=== PATIENT | male | born 1970 | race Hispanic/Latino ===

== ENCOUNTER 2021-09-30 09:13 | Inpatient (IN) | payer OTHER ==
[~2021-09-30] VITALS: Ht 160 cm; Wt 89.9 kg
[2021-09-30 10:02] LABS: BASOPHILS % (AUTO) 0.7 % (0.0-5.0); HEMATOCRIT 33.9 % (42-54); LYMPHOCYTES % (AUTO) 6.3 % (21.0-51.0); MEAN CORPUSCULAR HEMOGLOBIN 28.8 pg (27.0-33.0); MEAN CORPUSCULAR HGB CONC 34.2 g/dL (32.0-36.0); MEAN CORPUSCULAR VOLUME 84.1 fL (79-99); MONOCYTES % (AUTO) 8.1 % (3.0-13.0); NEUTROPHILS % (AUTO) 83.4 % (40.0-77.0); PLATELET COUNT (AUTO) 160 K/uL (130-400); RED BLOOD CELL COUNT(AUTO) 4.03 MIL/uL (4.50-6.20); RED CELL DISTRIBUTION WIDTH 14.6 % (11.0-15.5); WHITE BLOOD COUNT (AUTO) 21.7 K/uL (4.8-10.8)
[2021-09-30 10:12] LABS: CARBON DIOXIDE 21 mmol/L (21-32); CHLORIDE 94 mmol/L (101-111); CREATININE 2.3 mg/dL (0.5-1.5); GLOMERULAR FILTR. RATE CALC 32 mL/min (>60); GLUCOSE,RANDOM 133 mg/dL (70-105); INR 1.48 (0.85-1.15); POTASSIUM 3.9 mmol/L (3.5-5.1); PROTHROMBIN TIME 15.6 SEC (9.6-11.6); SODIUM SERUM 130 mmol/L (136-145); UREA NITROGEN, BLOOD 74 mg/dL (7-18)
[2021-09-30 10:24] LABS: ALANINE AMINOTRANSFERASE 37 U/L (12-78); ALCOHOL, BLOOD < 3 mg/dL (0-10); ASPARTATE AMINOTRANSFERASE 42 U/L (10-37); BILIRUBIN,TOTAL 2.5 mg/dL (0.2-1.0); LIPASE 62 U/L (114-286); THYROID STIMULATING HORMONE 0.82 uIU/mL (0.36-3.74); TOTAL PROTEIN, SERUM 7.8 g/dL (6.0-8.3)
[2021-09-30 10:27] LABS: B-TYPE NATRIURETIC PEPTIDE 228 pg/mL (0-100)
[2021-09-30] MEDS ORDERED: 0.9%NACL 50ML 50 ML IV ONE (10:27)
[2021-09-30] MEDS ORDERED: ZOSYN 3.375GM +NS 50ML IV ONE (10:30)
[2021-09-30 10:34] LABS: APPEARANCE,URINE Cloudy (CLEAR); BILIRUBIN,URINE Small (NEGATIVE); COLOR,URINE Dark Yellow (YELLOW); GLUCOSE, URINE (UA) Negative (NEGATIVE); KETONES,URINE Negative (NEGATIVE); LEUKOCYTE ESTERASE ,URINE Trace (NEGATIVE); NITRATE,URINE Negative (NEGATIVE); OCCULT BLOOD,URINE Negative (NEGATIVE); PROTEIN,URINE POS 1+ mg/dL (NEGATIVE)
[2021-09-30 10:41] LABS: AMORPHOUS SEDIMENT,UR Few /LPF (None Seen); BACTERIA,URINE None Seen /HPF (None Seen); MUCUS,URINE Rare LPF (None Seen); RBC,URINE None Seen /HPF (0-1); WBC,URINE 0-1 /HPF (0-1)
[2021-09-30 10:42] LABS: AMPHET/METH SCREEN,URINE NEGATIVE (NEGATIVE); BARBITURATE SCREEN, URINE NEGATIVE (NEGATIVE); BENZODIAZEPINES SCREEN,URINE NEGATIVE (NEGATIVE); CANNABINOID SCREEN,URINE POSITIVE (NEGATIVE); COCAINE SCREEN,URINE POSITIVE (NEGATIVE); OPIATE SCREEN,URINE NEGATIVE (NEGATIVE); PHENCYCLIDINE SCREEN,URINE NEGATIVE (NEGATIVE); SQUAMOUS EPITHELIAL CELL,UR Few /HPF (0-2)
[2021-09-30] MEDS ORDERED: LACTULOSE 20 GM/30 ML UDCUP PO PRN (11:30)
[2021-09-30] MEDS ORDERED: LABETALOL 20MG SYG IV PRN (11:30)
[2021-09-30] MEDS ORDERED: ACETAMINOPHEN 650 MG SUPPOSITORY RC PRN (11:30)
[2021-09-30] MEDS ORDERED: HYDRALAZINE 20MG/ML VIAL IV PRN (11:30)
[2021-09-30] MEDS ORDERED: TEMAZEPAM 15 MG CAPSULE PO PRN (11:30)
[2021-09-30] MEDS ORDERED: ONDANSETRON 4MG INJ IVP PRN (11:30)
[2021-09-30] MEDS: ZOSYN 3.375GM +NS 50ML IV SCH ×2 (12:18→22:08)
[2021-09-30] MEDS: ACETAMINOPHEN 325 MG TAB PO PRN (12:18)
[2021-09-30] MEDS ORDERED: HYDROCODONE/ACETAMINOPHEN 5/325 MG TAB PO ONE (12:30)
[2021-09-30 14:38] VITALS: BP 112/80
[2021-09-30] MEDS ORDERED: PRED10TA3 PO (14:51)
[2021-09-30] MEDS ORDERED: NAPR500T6 PO (14:51)
[2021-09-30] MEDS ORDERED: DIAZEPAM 5 MG TABLET PO PRN (16:30)
[2021-09-30] MEDS ORDERED: HYDROMORPHONE 0.5 MG SYG (0.5MG/0.5ML) IVP PRN (16:30)
[2021-09-30] MEDS: 0.9% NACL 250ML IVPB SCH (16:37)
[2021-09-30] MEDS: DOXYCYCLINE 100MG+NS 250ML IV SCH (16:37)
[2021-09-30 19:00] VITALS: BP 112/58
[2021-10-01] VITALS (8 sets, daily range): BP systolic 106–127; BP diastolic 55–73
[2021-10-01] MEDS: 0.9% NACL 250ML IVPB SCH ×2 (04:00→17:17)
[2021-10-01 04:30] LABS: BASOPHILS % (AUTO) 0.9 % (0.0-5.0); EOSINOPHILS % (AUTO) 0.8 % (0.0-8.0); HEMATOCRIT 31.7 % (42-54); LYMPHOCYTES % (AUTO) 6.1 % (21.0-51.0); MEAN CORPUSCULAR HEMOGLOBIN 28.8 pg (27.0-33.0); MEAN CORPUSCULAR VOLUME 82.1 fL (79-99); MONOCYTES % (AUTO) 10.8 % (3.0-13.0); NUCLEATED RED BLOOD CELLS 0.2 % (0.0-0.19); PLATELET COUNT (AUTO) 158 K/uL (130-400); RED BLOOD CELL COUNT(AUTO) 3.86 MIL/uL (4.50-6.20); RED CELL DISTRIBUTION WIDTH 14.8 % (11.0-15.5); WHITE BLOOD COUNT (AUTO) 16.8 K/uL (4.8-10.8)
[2021-10-01] MEDS: ZOSYN 3.375GM +NS 50ML IV SCH ×3 (04:31→21:22)
[2021-10-01 04:48] LABS: ALBUMIN 2.4 g/dL (3.5-5.0); BILIRUBIN,TOTAL 2.9 mg/dL (0.2-1.0); CREATININE 1.5 mg/dL (0.5-1.5); PHOSPHORUS 3.6 mg/dL (2.5-4.9); POTASSIUM 3.2 mmol/L (3.5-5.1); TOTAL PROTEIN, SERUM 7.2 g/dL (6.0-8.3)
[2021-10-01] MEDS: DOXYCYCLINE 100MG+NS 250ML IV SCH ×2 (06:26→17:12)
[2021-10-01] MEDS ORDERED: SOLU-MEDROL 125MG VIAL IVP SCH (06:30)
[2021-10-01] MEDS: PANTOPRAZOLE 40 MG TAB DR PO SCH (10:02)
[2021-10-01] MEDS: ENOXAPARIN SODIUM 40 MG/0.4 ML SYRINGE SQ SCH (10:03)
[2021-10-01] MEDS ORDERED: POTASSIUM CHLORIDE 10% ELIXIR 20 MEQ/15 ML UDCUP PO PRN (13:00)
[2021-10-01] MEDS ORDERED: POTASSIUM CHLORIDE 20MEQ/100ML 100 ML IV PRN (13:00)
[2021-10-01] MEDS ORDERED: LIDOCAINE HCL-MPF 1% 2ML VIAL IV PRN (13:00)
[2021-10-01] MEDS: KCL 20 MEQ ERTAB PO PRN ×3 (14:40→23:34)
[2021-10-01] MEDS: SOLU-MEDROL 125MG VIAL IVP SCH ×3 (14:45→23:34)
[2021-10-02] MEDS: DOXYCYCLINE 100MG+NS 250ML IV SCH ×2 (02:50→16:20)
[2021-10-02 04:17] VITALS: BP 157/66
[2021-10-02 04:29] LABS: BASOPHILS % (AUTO) 0.4 % (0.0-5.0); EOSINOPHILS % (AUTO) 0.1 % (0.0-8.0); HEMATOCRIT 29.5 % (42-54); LYMPHOCYTES % (AUTO) 6.7 % (21.0-51.0); MEAN CORPUSCULAR HEMOGLOBIN 28.1 pg (27.0-33.0); MEAN CORPUSCULAR HGB CONC 34.9 g/dL (32.0-36.0); MEAN CORPUSCULAR VOLUME 80.6 fL (79-99); MONOCYTES % (AUTO) 8.5 % (3.0-13.0); NEUTROPHILS % (AUTO) 83.3 % (40.0-77.0); NUCLEATED RED BLOOD CELLS 0.1 % (0.0-0.19); PLATELET COUNT (AUTO) 190 K/uL (130-400); RED BLOOD CELL COUNT(AUTO) 3.66 MIL/uL (4.50-6.20); RED CELL DISTRIBUTION WIDTH 14.6 % (11.0-15.5); WHITE BLOOD COUNT (AUTO) 20.5 K/uL (4.8-10.8)
[2021-10-02 04:40] LABS: CREATININE 0.9 mg/dL (0.5-1.5); MAGNESIUM 2.4 mg/dL (1.80-2.40); PHOSPHORUS 2.6 mg/dL (2.5-4.9)
[2021-10-02] MEDS: ZOSYN 3.375GM +NS 50ML IV SCH ×3 (06:12→18:41)
[2021-10-02] MEDS: SOLU-MEDROL 125MG VIAL IVP SCH ×3 (06:12→18:41)
[2021-10-02 08:00] VITALS: BP 123/70
[2021-10-02] MEDS: FOLIC ACID 1 MG TABLET PO SCH (08:20)
[2021-10-02] MEDS: THIAMINE HCL 100 MG TABLET PO SCH (08:20)
[2021-10-02] MEDS: PANTOPRAZOLE 40 MG TAB DR PO SCH (08:20)
[2021-10-02] MEDS: ENOXAPARIN SODIUM 40 MG/0.4 ML SYRINGE SQ SCH (08:21)
[2021-10-02 12:00] VITALS: BP 141/76
[2021-10-02 16:00] VITALS: BP 119/71
[2021-10-02] MEDS: 0.9% NACL 250ML IVPB SCH (16:20)
[2021-10-02] MEDS ORDERED: DOXY100T21 PO (18:11)
[2021-10-02] MEDS ORDERED: PRED10TA3 PO (18:11)
[2021-10-02] MEDS ORDERED: AMOX-429 PO (18:13)
[2021-10-02 20:00] VITALS: BP 135/71
[2021-10-02] MEDS: ACETAMINOPHEN 325 MG TAB PO PRN (22:26)
[2021-10-03] VITALS: BP 114/70
[2021-10-03] MEDS: SOLU-MEDROL 125MG VIAL IVP SCH ×3 (00:57→12:30)
[2021-10-03 04:00] VITALS: BP 104/66
[2021-10-03] MEDS: ZOSYN 3.375GM +NS 50ML IV SCH ×2 (05:18→11:30)
[2021-10-03] MEDS: 0.9% NACL 250ML IVPB SCH (05:18)
[2021-10-03] MEDS: DOXYCYCLINE 100MG+NS 250ML IV SCH (05:18)
[2021-10-03 05:20] LABS: HEMATOCRIT 29.4 % (42-54); MEAN CORPUSCULAR HEMOGLOBIN 28.5 pg (27.0-33.0); MEAN CORPUSCULAR VOLUME 83.8 fL (79-99); NUCLEATED RED BLOOD CELLS 0.1 % (0.0-0.19); RED BLOOD CELL COUNT(AUTO) 3.51 MIL/uL (4.50-6.20); RED CELL DISTRIBUTION WIDTH 15.7 % (11.0-15.5); WHITE BLOOD COUNT (AUTO) 23.7 K/uL (4.8-10.8)
[2021-10-03 05:47] LABS: POTASSIUM 4.1 mmol/L (3.5-5.1)
[2021-10-03 08:00] VITALS: BP 127/73
[2021-10-03] MEDS: PANTOPRAZOLE 40 MG TAB DR PO SCH (09:08)
[2021-10-03] MEDS: FOLIC ACID 1 MG TABLET PO SCH (09:08)
[2021-10-03] MEDS: THIAMINE HCL 100 MG TABLET PO SCH (09:08)
[2021-10-03] MEDS: ENOXAPARIN SODIUM 40 MG/0.4 ML SYRINGE SQ SCH (09:10)
[2021-10-03 12:00] VITALS: BP 132/75
[2021-10-03 16:10] LABS: ROCKY MT SPOTTED FEVER IGG <1:64 (Neg:<1:64); TYPHUS FEVER AB IGG <1:64 (Neg:<1:64)
== END 2021-10-03 13:49 | disposition home or self-care (01) | DRG 871 ==
LOC: EDH 09:13 → INTOOBSV 09:14 → OBSVTOIN 09:14 → EDHIP 09:14 → 3BH 14:47
PROVIDERS: ADMIT Internal Medicine Infectious Disease; ATTEND Internal Medicine Infectious Disease
DX: A41.9 Sepsis, unspecified organism (principal); I21.A1 Myocardial infarction type 2; N17.9 Acute kidney failure, unspecified; N39.0 Urinary tract infection, site not specified; I77.6 Arteritis, unspecified; F14.10 Cocaine abuse, uncomplicated; F12.10 Cannabis abuse, uncomplicated; F10.10 Alcohol abuse, uncomplicated; F17.210 Nicotine dependence, cigarettes, uncomplicated; K74.60 Unspecified cirrhosis of liver
CPT/HCPCS: 36415; 71045; 76700; 78580; 80048; 80053; 80074; 80305; 81001; 82550; 82948; 83605; 83690; 83735; 83874; 83880; 84100; 84145; 84443; 84484; 85025; 85027; 85378; 85610; 85651; 85732; 86038; 86160; 86162; 86215; 86235; 86255; 86431; 86592; 86701; 86706; 86747; 86757; 87040; 87088; 87390; 87520; 87635; 87804; 87880; 93005; 93308; 93970; 99291; A9540; C9803; G0378; J1650; J2543; J2930; J3490; J7050

== ENCOUNTER 2021-10-05 10:47 | Emergency (ER) | payer SELFPAY ==
[~2021-10-05] VITALS: Ht 160 cm; Wt 89.4 kg
[~2021-10-05 10:47] MED LIST: AMOX-429 PO; DOXY100T21 PO; PRED10TA3 PO
[2021-10-05] MEDS ORDERED: MORPHINE 4 MG SYG IV SCH (11:30)
[2021-10-05 11:45] LABS: BASOPHILS % (AUTO) 0.2 % (0.0-5.0); EOSINOPHILS % (AUTO) 1.6 % (0.0-8.0); HEMATOCRIT 36.1 % (42-54); LYMPHOCYTES % (AUTO) 13.5 % (21.0-51.0); MEAN CORPUSCULAR HEMOGLOBIN 28.5 pg (27.0-33.0); MEAN CORPUSCULAR HGB CONC 34.1 g/dL (32.0-36.0); MEAN CORPUSCULAR VOLUME 83.6 fL (79-99); NEUTROPHILS % (AUTO) 74.6 % (40.0-77.0); PLATELET COUNT (AUTO) 292 K/uL (130-400); RED BLOOD CELL COUNT(AUTO) 4.32 MIL/uL (4.50-6.20); RED CELL DISTRIBUTION WIDTH 15.5 % (11.0-15.5); WHITE BLOOD COUNT (AUTO) 21.8 K/uL (4.8-10.8)
[2021-10-05 11:47] LABS: APPEARANCE,URINE Clear (CLEAR); BILIRUBIN,URINE Negative (NEGATIVE); COLOR,URINE Dark Yellow (YELLOW); GLUCOSE, URINE (UA) Negative (NEGATIVE); KETONES,URINE Negative (NEGATIVE); LEUKOCYTE ESTERASE ,URINE Negative (NEGATIVE); NITRATE,URINE Negative (NEGATIVE); OCCULT BLOOD,URINE Negative (NEGATIVE); PROTEIN,URINE Negative (NEGATIVE)
[2021-10-05 11:53] LABS: AMPHET/METH SCREEN,URINE NEGATIVE (NEGATIVE); BARBITURATE SCREEN, URINE NEGATIVE (NEGATIVE); BENZODIAZEPINES SCREEN,URINE NEGATIVE (NEGATIVE); CANNABINOID SCREEN,URINE POSITIVE (NEGATIVE); COCAINE SCREEN,URINE NEGATIVE (NEGATIVE); OPIATE SCREEN,URINE NEGATIVE (NEGATIVE); PHENCYCLIDINE SCREEN,URINE NEGATIVE (NEGATIVE)
[2021-10-05 11:55] LABS: CREATININE 0.8 mg/dL (0.5-1.5)
[2021-10-05 11:59] LABS: ALBUMIN 2.4 g/dL (3.5-5.0); BILIRUBIN,TOTAL 1.2 mg/dL (0.2-1.0); CRP QUANTITATIVE 31.1 mg/L (0.00-9.0)
[2021-10-05 12:07] LABS: BACTERIA,URINE Rare /HPF (None Seen); RBC,URINE 0-1 /HPF (0-1); SQUAMOUS EPITHELIAL CELL,UR Rare /HPF (0-2); WBC,URINE 0-1 /HPF (0-1)
[2021-10-05 12:47] LABS: ERYTHROCYTE SEDIMENTATION RATE 45 MM/HR (0-15)
[2021-10-05] MEDS ORDERED: SOLU-MEDROL 125MG VIAL IVP SCH (16:00)
[2021-10-05] MEDS ORDERED: ACET1TAB25 PO (17:11)
[2021-10-05 17:17] VITALS: BP 134/77
== END 2021-10-05 17:19 | disposition home or self-care (01) ==
LOC: EDH 10:47
DX: I77.6 Arteritis, unspecified (principal); Z79.1 Long term (current) use of non-steroidal anti-inflammatories (NSAID); Z79.52 Long term (current) use of systemic steroids
CPT/HCPCS: 36415; 80053; 80305; 81001; 82550; 85025; 85651; 86140; 96374; 96375; 99284; J2270; J2930